=== PATIENT | female | born 1995 ===

== ENCOUNTER → 2017-03-21 | Outpatient (CLI) | payer BC | END | disposition home or self-care (01) | LOC: PPH VACUNA 12:33 | DX: Z23 Encounter for immunization (principal) ==

== ENCOUNTER → 2020-07-07 23:28 | Outpatient (CLI) | payer OTHER | END | disposition home or self-care (01) | LOC: PPH VACUNA 23:28 | DX: Z23 Encounter for immunization (principal) ==

== ENCOUNTER 2021-03-09 01:22 | Outpatient (CLI) | payer OTHER ==
[2021-03-09] MEDS ORDERED: PRENATAL TABLE1 EAC1 PO (01:23)
[2021-03-09] MEDS ORDERED: MULTI VITAMIN1 EACH PO (01:51)
== END 2021-03-10 11:31 | disposition home or self-care (01) ==
LOC: OBS/DEL 01:22
PROVIDERS: ATTEND Obstetrics & Gynecology
DX: O98.513 Other viral diseases complicating pregnancy, third trimester (principal); U07.1 COVID-19; O23.43 Unspecified infection of urinary tract in pregnancy, third trimester; Z3A.33 33 weeks gestation of pregnancy

== ENCOUNTER 2021-04-24 00:56 | Inpatient (IN) | payer OTHER ==
[~2021-04-24] VITALS: Ht 162.6 cm; Wt 3.2 kg
[~2021-04-24 00:56] MED LIST: MULTI VITAMIN1 EACH PO; PRENATAL TABLE1 EAC1 PO
[2021-04-24] MEDS ORDERED: CHILDREN'S ASPI81 MG PO (01:11)
== END 2021-04-27 12:51 | disposition home or self-care (01) | DRG 786 ==
LOC: OB/GYN 00:56 → LDR 00:56 → OB/GYN 13:11
PROVIDERS: ADMIT Obstetrics & Gynecology; ATTEND Specialist
PROC: 4A1HXCZ Monitoring of Products of Conception, Cardiac Rate, External Approach (ICD-10-PCS; 2021-04-24)
PROC: 10D00Z1 Extraction of Products of Conception, Low, Open Approach (ICD-10-PCS; principal; 2021-04-24 10:30)
DX: O62.0 Primary inadequate contractions (principal); U07.1 COVID-19; O98.513 Other viral diseases complicating pregnancy, third trimester; O23.43 Unspecified infection of urinary tract in pregnancy, third trimester; Z3A.40 40 weeks gestation of pregnancy; Z20.822 Contact with and (suspected) exposure to COVID-19